=== PATIENT | female | born 1995 | race African-American/Black ===

== ENCOUNTER 2016-09-15 11:38 | Emergency (ER) | payer OTHER ==
[~2016-09-15] VITALS: Ht 170.2 cm; Wt 78.0 kg
[2016-09-15 12:00] VITALS: BP 138/74
[2016-09-15] MEDS ORDERED: ACETAMINOPHEN 325MG TABLET PO ONE (12:15)
== END 2016-09-15 13:56 | disposition home or self-care (01) ==
LOC: ER 13:37
DX: K52.9 Noninfective gastroenteritis and colitis, unspecified (principal)
CPT/HCPCS: 87804; 99284

== ENCOUNTER 2020-05-12 10:16 | Emergency (ER) | payer OTHER ==
[~2020-05-12] VITALS: Ht 170.2 cm; Wt 82.0 kg
[2020-05-12 11:48] LABS: BASOPHILS % 0.5 % (0.0-2.0); EOSINOPHILS % 1.2 % (0.0-5.0); HEMOGLOBIN. 13.1 g/dL (12.0-16.0); LYMPHOCYTES % 21.5 % (20.0-50.0); MEAN CORPUSCULAR HEMOGLOBIN 32.3 pg (28.0-32.0); MEAN CORPUSCULAR VOLUME 96.3 fL (81.0-99.0); MEAN PLATELET VOLUME 8.1 fl (7.4-10.4); MONOCYTES % 6.9 % (2.0-8.0); NEUTROPHILS % 69.9 % (40.0-76.0); PLATELET 264 x1000/uL (130-400); RED BLOOD CELL COUNT 4.05 mill/uL (4.2-5.4); RED CELL DISTRIBUTION WIDTH 12.7 % (11.6-14.6)
[2020-05-12 11:55] LABS: CHLORIDE 109 mEq/L (98-107)
[2020-05-12 12:06] LABS: B-HCG QUANTITATIVE < 1 mIU/mL (<3)
[2020-05-12 12:19] LABS: CLARITY URINE CLEAR (CLEAR); COLOR URINE YELLOW (YELLOW); KETONES URINE NEGATIVE (NEGATIVE); LEUKOCYTE ESTERASE URINE TRACE (NEGATIVE); NITRITE URINE NEGATIVE (NEGATIVE); OCCULT BLOOD URINE NEGATIVE (NEGATIVE); PH URINE 7.5 (4.5-8.0); PROTEIN URINE NEGATIVE (NEGATIVE); SPECIFIC GRAVITY URINE 1.023 (1.005-1.030)
[2020-05-12 13:27] VITALS: BP 120/76
== END 2020-05-12 13:28 | disposition home or self-care (01) ==
LOC: ER 10:16
DX: N92.0 Excessive and frequent menstruation with regular cycle (principal)
CPT/HCPCS: 36415; 76830; 76856; 80053; 81003; 81025; 84702; 85025; 86850; 86900; 99284

== ENCOUNTER 2023-12-03 12:20 | Emergency (ER) | payer OTHER ==
[~2023-12-03] VITALS: Ht 170.2 cm; Wt 80.0 kg
[2023-12-03 12:24] VITALS: TEMP 98.7; O2SAT 99
[2023-12-03 13:00] VITALS: BP 129/78; PULSE 68; RESP 16
[2023-12-03] MEDS: IBUPROFEN 600MG TABLET PO ONE (13:00)
== END 2023-12-03 17:06 ==
LOC: ER 12:20
DX: R07.9 Chest pain, unspecified (principal)
CPT/HCPCS: 71101; 81025; 99283